=== PATIENT | female | born 1995 | race Caucasian/White ===

== ENCOUNTER 2024-02-02 13:44 | Inpatient (IN) | payer OTHER, SELFPAY ==
[2024-02-02] VITALS (76 sets, daily range): BP systolic 106–125; BP diastolic 51–84; PULSE 25–175; TEMP 36.4–37.3; O2SAT 84–100; BMI 30.7
[2024-02-02 14:31] LABS: Basophils Percent Auto 0.3 % (0.2-1.2); Eosinophils Absolute Auto 0.1 K/mm3 (0-0.3); Eosinophils Percent Auto 0.8 % (0-4.4); Hematocrit 39.1 % (37.0-47.0); Hemoglobin 12.7 g/dL (12.0-15.0); Immature Granulocyte Absolute 0.06 K/mm3 (0.00-0.031); Immature Granulocyte Percent A 0.5 % (0-0.5); Lymphocytes Absolute Auto 1.69 K/mm3 (0.9-3.2); Lymphocytes Percent Auto 14.8 % (18.3-44.2); Mean Corpuscular HGB Conc 32.5 g/dl (32-36); Mean Corpuscular Hemoglobin 32.1 pg (26-34); Mean Corpuscular Volume 98.7 fl (80-100); Mean Platelet Volume 12.4 fl (7.4-10.4); Monocytes Absolute Auto 0.5 K/mm3 (0.1-0.6); Monocytes Percent Auto 4.6 % (2.6-8.5); Platelet Count Result 161 k/mm3 (150-375); Red Blood Count 3.96 M/mm3 (4.2-5.4); Red Cell Distribution Width 15.1 % (11.5-14.5); White Blood Count 11.4 K/mm3 (4.5-10.0)
[2024-02-02] MEDS: LACTATED RINGERS 1,000 ML 125 ML IV CONT (14:36)
[2024-02-02] MEDS: AMPICILLIN 2 GM/NS 100 ML 2 GM/100 ML BAG IVPB (14:37)
[2024-02-02] MEDS: OXYTOCIN 30 UNITS/NS 500 ML 30 UNITS/500 ML BAG IV CONT (14:37)
--- NOTE | 2024-02-02 14:45 | LDADM ---
This patient, Theresa Connell, was admitted to Labor/Delivery/Recovery 102 on 02/02/24 at 13:44. Plans for labor, pain management and were discussed with patient. Patient/family oriented to hospital policies and general routines including ID bracelet, bed and alarms, visiting hours, pain management, procedures, bathroom and other care routines, personal items, smoking policy, room service/diet and guest tray routines, security routines, and visiting hours. Patient/Family are encouraged to report perceived risks to care and to ask questions if they do not understand what they are told or what they should do. See OBIX for further documentation.
[2024-02-02] MEDS: AMPICILLIN 1 GM/NS 50 ML 1 GM/50 ML BAG IVPB (18:30)
[2024-02-02] MEDS: IBUPROFEN 600 MG TABLET PO (21:33)
--- NOTE | 2024-02-02 21:33 | WPDOBADMIT ---
Obstetrics - Admit Note Admission Note: record reviewed. No pertinent additions to the history and/or any subsequent changes in the physical findings that are not consistent with the expected course of the were found. Additions to the history and/or subsequent changes in the physical findings follow. TOLAC, oligohydramnios
--- NOTE | 2024-02-02 21:33 | PM.OBPRVD ---
OB - Vaginal Delivery Note Procedure Delivery date: 02/02/24 Events: Oligohydramnios and Other (previous section) Induction method: AROM and Per Pitocin Protocol Delivery monitor: External FHT and External Uterine Episiotomy description: None Laceration Description: None Specimen: No Quantitative Blood Loss (ml): 160 Anesthesia type: None Disposition: Floor Complications: No immediate complications Baby Date of : 02/02/24 Time of : 21:14 Weeks of gestation at delivery: 39 Infant gender: Male presentation: vertex position: Left Occiput Anterior Placenta delivery description: Spontaneous Cord Vessel Description: 3 Vessels and Delayed Cord Clamping score one minute: 8 score five minutes: 9 Narrative: mother and baby skin to skin in stable condition
[2024-02-02] MEDS: OXYTOCIN 30 UNITS/NS 500 ML 30 UNITS/500 ML BAG 125 UNITS IV CONT (22:07)
[2024-02-02] MEDS: miSOPROStol 200 MCG TABLET 1000 MCG RECTAL (22:37)
[2024-02-02] MEDS: WITCH HAZEL 40 PADS 1 PAD TOPICAL (23:11)
[2024-02-02] MEDS: BENZOCAINE 20% AER SPR (*SP) 56 GM CAN 1 SPRAY TOPICAL (23:12)
[2024-02-03 00:20] VITALS: BP 107/56; PULSE 91; RESP 16; TEMP 36.3
[2024-02-03] MEDS: IBUPROFEN 600 MG TABLET PO ×3 (05:02→23:54)
[2024-02-03 05:15] LABS: Hematocrit 36.2 % (37.0-47.0); Hemoglobin 11.8 g/dL (12.0-15.0)
[2024-02-03 07:45] VITALS: BP 85/50; PULSE 68; RESP 16; TEMP 36.6; O2SAT 99
[2024-02-03 08:00] VITALS: PULSE 68; RESP 16; O2SAT 99
[2024-02-03] MEDS: MULTIVIT/MIN/PREN/FOL AC/IRON TABLET 1 TAB PO (09:12)
--- NOTE | 2024-02-03 10:49 | PM.OBPNVD ---
OB - PN: Subj Subjective Date/time seen: 02/03/24 10:49 Patient comments: no complaints, pain well controlled, incisional pain, tolerating diet and flatus present OB - PN: Obj Data Labs 02/03/24 04:57 Labs: Laboratory Results - last 24 hr 02/02/24 02/03/24 14:19 04:57 WBC 11.4 H RBC 3.96 L Hgb 12.7 11.8 L Hct 39.1 36.2 L MCV 98.7 MCH 32.1 MCHC 32.5 RDW 15.1 H Plt Count 161 MPV 12.4 H Immature Gran % (Auto) 0.5 Neut % (Auto) 79.0 H Lymph % (Auto) 14.8 L [place] % (Auto) 4.6 Eos % (Auto) 0.8 Baso % (Auto) 0.3 Lymph # (Auto) 1.69 [place] # (Auto) 0.5 Eos # (Auto) 0.1 Baso # (Auto) 0.0 Abs Immat Gran (auto) 0.06 H Absolute Neuts (auto) 9.0 H Absolute Nucleated RBC 0.000 Nucleated RBC % 0.0 Blood Type B Positive Antibody Screen Negative OB - PN A/P Plan day: 1 Plan: routine care Comments: No problems, routine care Time Spent With Patient Time: Total time spent is greater than 50% in coordination of care (as documented) at patient's floor/unit and/or counseling patient: Exam Const: General: comfortable, no acute distress and alert Resp: Effort & Inspection: normal respiratory effort Auscultation: no crackles, no rales and no rhonchi Cardio: Rate: regular rate Heart sounds: no click, no murmurs and no rubs GI: Inspection: non-distended GI Palp: No Tenderness to palpation present (GI) Auscultation: normal bowel sounds Other: Incision - CDI Extrem: General: normal to inspection, no pedal edema and no calf tenderness
[2024-02-03 12:30] VITALS: BP 103/63; PULSE 75; RESP 18; TEMP 36.5; O2SAT 100
[2024-02-03] MEDS: SIMETHICONE 80 MG TAB.CHEW PO ×2 (15:57→23:54)
[2024-02-03] MEDS: ACETAMINOPHEN 325 MG TABLET 650 MG PO (20:13)
[2024-02-03 21:15] VITALS: BP 99/55; PULSE 80; RESP 16; TEMP 36.3
[2024-02-04] MEDS: IBUPROFEN 600 MG TABLET PO (06:05)
--- NOTE | 2024-02-04 06:50 | PM.OBPNVD ---
OB - PN: Subj Subjective Date/time seen: 02/04/24 06:50 Patient comments: no complaints, pain well controlled and tolerating diet OB - PN: Obj Data Labs 02/03/24 04:57 OB - PN A/P Plan day: 2 Plan: routine care and discharge home Time Spent With Patient Time: Total time spent is greater than 50% in coordination of care (as documented) at patient's floor/unit and/or counseling patient: Exam Const: General: comfortable and no acute distress Resp: Effort & Inspection: normal respiratory effort Auscultation: no rales, no rhonchi and no wheezes Cardio: Rate: regular rate Heart sounds: no click, no murmurs and no rubs GI: GI Palp: Yes Soft to palpation and No Tenderness to palpation present (GI) Auscultation: normal bowel sounds Extrem: General: normal to inspection, no pedal edema and no calf tenderness
--- NOTE | 2024-02-04 06:51 | PM.OBDSVD ---
DS: Admitting Diagnosis Discharge Date February 04, 2024 Admitting Diagnosis term DS: Discharge Diagnosis Discharge Diagnosis (1) Post term , delivered: Code(s): O48.0 - Post-term Status: Acute OB - DS: Summary OB Procedures : None OB Procedures Intrapartum: Spontaneous Vag Delivery OB Procedures: : None Peripartum Data Laceration Description: None Episiotomy description: None Time Spent with Patient Time attestation: Total time spent providing and/or coordinating discharge services: Discharge Plan Discharge Discharging Clinician: Daily Self Patient Disposition: Home, Self-Care Activity: pelvic rest Diet: regular Patient Instructions: Antibiotic Form Stand Alone Forms: General Discharge Information Follow-up/Referrals: Daily Self MD [Physician] - Discharge Medications: Continued ferrous sulfate 325 mg (65 mg iron) Tablet 325 mg PO DAILY #2 Tablet 1 tablet PO DAILY cholecalciferol (vitamin D3) 50 mcg (2,000 unit) Tablet 50 mcg PO DAILY Date of admission: 02/02/24 13:44 Primary Care Provider: ElifCassandra Admitting Provider: Daily Self Attending physician on admission: Daliy Self Condition: Stable
[2024-02-04 07:39] VITALS: BP 104/66; PULSE 75; RESP 18; TEMP 36.6; O2SAT 100
[2024-02-04] MEDS: DOCUSATE SODIUM 100 MG CAPSULE PO (09:34)
[2024-02-04] MEDS: MULTIVIT/MIN/PREN/FOL AC/IRON TABLET 1 TAB PO (09:34)
[2024-02-05 15:10] LABS: Rapid Plasma Reagin Non-Reactive (NonReactive)
== END 2024-02-04 10:35 | disposition home or self-care (01) | DRG 560 ==
LOC: ANHLDR 13:58 → ANHOB2 23:30
PROVIDERS: Admitting Provider Obstetrics & Gynecology; PCP Nurse Practitioner Family; Referring Provider Advanced Practice Midwife; Visit Provider Obstetrics & Gynecology
DX: O34.219 Maternal care for unspecified type scar from previous cesarean delivery (principal); O41.03X0 Oligohydramnios, third trimester, not applicable or unspecified; Z3A.39 39 weeks gestation of pregnancy; Z37.0 Single live birth; O99.824 Streptococcus B carrier state complicating childbirth
CPT/HCPCS: 36415; 85014; 85018; 85025; 86592; 86850; 86900; 86901; A9270; J0290; J2590; J7120